=== PATIENT | female | born 1930 | race Caucasian/White ===

== ENCOUNTER 2020-07-04 23:53 | Emergency (ER) | payer MEDICARE, SELFPAY ==
[~2020-07-04 23:53] MED LIST: ASPIRIN CHEWABL81 MG PO; PERCOCET 5-3251 EACH PO; SYNTHROID25 MCG PO
== END 2020-07-05 04:56 | disposition home or self-care (01) ==
LOC: FER 23:53
DX: K64.5 Perianal venous thrombosis (principal); K92.9 Disease of digestive system, unspecified; Z79.899 Other long term (current) drug therapy; Z90.49 Acquired absence of other specified parts of digestive tract

== ENCOUNTER 2020-07-24 00:08 | Emergency (ER) | payer MEDICARE, SELFPAY, OTHER ==
[2020-07-24 01:10] LABS: HCT 39.9 % (37.0-47.0); LYMPHOCYTE 32.3 % (15-48); MCH 30.4 pg (25.0-31.0); MCHC 32.6 g/dL (32.0-36.0); MCV 93.2 fL (78.0-100.0); MONOCYTE 11.2 % (0-12); MPV 10.9 fL (6.0-9.5); NEUTROPHIL 51.2 % (41-80); NRBC 0; PLT 209 K/uL (150-400); RBC 4.28 M/uL (4.20-5.40); RDW 13.1 % (11.5-14.0); WBC 6.1 K/uL (4.0-10.5)
[2020-07-24 01:17] LABS: INR 1.09 (0.9-1.2); PROTHROMBIN TIME 13.4 SECONDS (11.4-13.6)
[2020-07-24 01:18] LABS: PTT 33.7 SECONDS (22.2-34.7)
[2020-07-24 01:19] LABS: D-DIMER 0.55 ug/mLFEU (0.00-0.41)
[2020-07-24 01:24] LABS: ALBUMIN 3.5 g/dL (3.4-5.0); BILIRUBIN - TOTAL 0.4 mg/dL (0.2-1.0); BUN/CREAT RATIO (CALC) 19.8 RATIO; CREATININE 1.11 mg/dL (0.51-0.95); GLOBULIN (CALCULATION) 3.1 g/dL; POTASSIUM 3.9 mmol/L (3.5-5.1); TOTAL PROTEIN 6.6 g/dL (6.4-8.2)
== END 2020-07-24 03:48 | disposition home or self-care (01) ==
LOC: FER 00:08
PROVIDERS: Emergency Medicine
DX: R07.89 Other chest pain (principal)
CPT/HCPCS: 36415; 71045; 80053; 84484; 85025; 85379; 85610; 85730; 93005